=== PATIENT | male | born 1935 | race Caucasian/White ===

== ENCOUNTER 2024-12-09 05:07 | Emergency (ER) | payer MEDICARE, SELFPAY ==
[2024-12-09] VITALS (16 sets, daily range): BP systolic 108–155; BP diastolic 59–78; PULSE 47–60; RESP 12–24; TEMP 36.5; O2SAT 81–100; BMI 22.0
--- OUTSIDE RECORDS SUMMARY | 2024-12-09 05:09 | XMS_ITS | Clinical Summary ---
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 0 1 Active omega-3 fatty acids-vitamin E (FISH OIL) 1,000 mg cap Take by mouth. 0 2 Active calcium carbonate-vitami n D3, 600 mg-400 unit, 600 mg(1,500mg) -400 unit tabletIndication s:Pre-op exam Take 1 tablet by mouth once daily with a meal. 0 6 Active LATANOPROST OPHT 3 Active timoloL maleate (TIMOPTIC) 0.25 % ophthalmic solution 3 Active dorzolamide HCl/PF (dorzolamide, PF,) 2 % drop Place 1 Drop into the eye(s) two times daily. Right eye Active predniSONE (DELTASONE) 1 mg tabletIndication s:PMR (polymyalgia rheumatica) (HC) Take 1 Tablet (1 mg) by mouth once daily with a meal. 90 Tablet 4 Active omeprazole (PRILOSEC) 20 mg Delayed-Release capsuleIndicatio ns:Gastroesophag eal reflux disease with esophagitis without hemorrhage Take 1 Capsule (20 mg) by mouth once daily before a meal. 90 Capsule 4 4 Active levothyroxine (SYNTHROID) 100 mcg tabletIndication s:Hypothyroidism (acquired) Take 1 Tablet (100 mcg) by mouth before breakfast. 90 Tablet 4 4 Active tamsulosin (Flomax) 0.4 mg capsuleIndicatio ns:Benign prostatic hyperplasia with urinary frequency Take 2 Capsules (0.8 mg) by mouth once daily after a meal. 180 Capsule 3 4 Active Active Problems Problem Noted Date Diagnosed Date PMR (polymyalgia rheumatica) 07/16/2021 Overview (10/15/2022): Elevated CRP and ferritin, new onset diffuse muscle pain and most notably bilateral shoulder pain worse in the morning. Prednisone was started in July of 2021. Hypothyroidism (acquired) 02/24/2017 Gastroesophageal reflux disease with esophagitis 02/24/2015 Overview (02/24/2015): EGD 02/2015 reflux Unspecified tinnitus 12/12/2010 Loss of hearing 12/12/2010 Elevated prostate specific antigen (PSA) 011 Overview (12/06/2023): He was told by Estefania Zapata PAC at [facility] on 06/24/22 that he did not need to see Urology anymore and he does not need to check his PSA anymore. The following is from Estefania Zapata: #1 Elevated PSA It was my please to meet Mr. Smith in clinic today for elevated PSA. He is no family history of prostate cancer and also had a previous biopsy many years ago which was benign. We discussed that his PSA was around 811 years ago which is even more reassuring for there not being any significant prostate cancer present. We discussed that certainly given his age there may be some low-grade prostate cancer. Could consider a prostate MRI versus discontinuing altogether which I favored. Was in agreement with no longer checking and discontinuing prostate cancer screening but his was persistent with moving forward with imaging. Therefore an MRI has been ordered. We also get a sizing for consideration of an outlet procedure if necessary. All questions and concerns were answered to their satisfaction I will update them via the online portal with the results of the MRI when they are available. Hematuria, unspecified 12/11/2010 Benign prostatic hyperplasia with urinary freque ncy 12/11/2010 Resolved Problems Problem Noted Date Diagnosed Date Resolved Date Unspecified hypothyroidism 12/11/2010 0 02/24/2017 Immunizations Immunization Administration Dates Next Due AMB INFLUENZA IIV3 (AGE 65+ YRS) PF (Flu Clinic Only) 04/24/2019 COVID-19 VACCINE SPIKEVAX (M ODERNA 50MCG/0.5ML) 12YO+ PFS 12/06/2023 COVID-19 vaccine (Pfizer-Bio NTech 30mcg/0.3mL) 12YO+ BIVALENT PF, MDV 11/12/2022 COVID-19 vaccine (Pfizer-Bio NTech 30mcg/0.3mL) PF, MDV 12/03/2021,04/20/2021,09/13/2020,2020 HepA-HepB (Twinrix) 09/07/2001 Hepatitis B (Adult) 02/07/2002 Influenza, High-dose Inactivated 03/21/2018,03/05,04/06/2015 Influenza, High-dose Quadriv alent Inactivated 02/22/2020 Influenza, IIV3 (Age >=3 years) 04/02/20 14,04/19/2013,04/10/2012,2011,05/31/2011,04/03/2011 Influenza, IIV4 04/03/2014 Influenza, Inactivated AIIV4 (Age 65+ Years) Preserv Free 05/16/2023,03/24/2022,04/17/2021 Oral Polio Vaccine 09/07/2001 Pneumococcal Poly,23-Valent (Pneumovax) 04/29/2010 Pneumococcal conj 13-Valent (Prevnar 13) 01/23/2015 Polio Virus, Unspecified 09/07/2001 Td (Age >=7 Years) 08/07/1999 Tdap 02/23/2022,07/29/2011 Typhoid (injectable) 02/07/2002 Zoster (Shingrix-RZV, recombinant) 07/21/2018,,05/11/2018 Zoster (Zostavax-ZVL, live) 10/28/2011 Family History Medical History Relation Name Comments Cancer Brother of throat cancer at 80 Other Father d at 74 from [place] PD Heart Disease Mother possibly OR an d at 80 Psychiatric illness Mother schizoph santiago Psychiatric illness Sister 1 suicide Stroke Sister 2 of this at 78 Relation Name Status Comments Brother Father Mother Sister 1 Sister 2 Sister 3 Jasmin Alive Sister 4 Simona Alive Social History Tobacco Use Types Packs/Day Years Used Date Smoking Tobacco: Never Smokeless Tobacco: Never Tobacco Cessation:Counseling Given: Not Answered Alcohol Use Standard Drinks/Week Comments Yes 4 (1 standard drink = 0.6 oz pure alcohol) 1 per day with dinner; not daily PHQ-2 Answer Date Recorded PHQ-2 TOTAL SCORE 0 01/11/2024 Social Connections Answer Date Recorded Do you often feel lonely or isolated from those around you? 0 01/08/2024 Alcohol Use Answer Date Recorded How often do you have a drink containing alcohol ? 4 12/06/2023 How many drinks containing a lcohol do you have on a typical day when you are drinking? 0 12/06/2023 How often do you have five or more drinks on one occasion? 0 12/06/2023 Financial Resource Strain Answer Date R ecorded Difficulty of Paying Living Expenses 3 12/06/2023 Difficulty of Paying Living Expenses Not on file 12/06/2023 Food Insecurity Answer Date Recorded Do you worry your food will run out before you are able to buy more? 1 01/08/2024 Transportation Needs Answer Date Record ed Does lack of transportation keep you from medica l appointments? 1 01/08/2024 Does lack of transportation keep you from work, meetings or getting things that you need? 1 01/08/2024 Housing Stability Answer Date Recorded What is your housing situation today? 1 01/08/2024 Utilities Answer Date Recorded Do you have trouble paying f or utilities (for example, heat, electricity, water, phone)? 1 01/08/2024 Sex and Gender Information Value Date Recorded Sex Assigned at Not on file Legal Sex Male 8:09 AM RESIDENTIAL TECH Gender Identity Not on file Sexual Orientation Not on file Occupation Industry Job Start Date Job End Date retired Not on file Not on file Not on file Obstetrics History Last Filed Vital Signs Vital Sign Reading Time Taken Comments Blood Pressure 142/68 01/11/2024 11:49 AM CDT manual recheck Pulse 70 01/11/2024 12:26 PM CDT Temperature 36.6 C (97.8 F) 12/06/2023 10:38 AM CDT Respiratory Rate 16 06/22/2021 2:55 PM RESIDENTIAL TECH Oxygen Saturation 99% 01/11/2024 11: 47 AM CDT Inhaled Oxygen Concentration - - Weight 69.9 kg (154 lb 1.6 oz) 01/11/2024 11:47 AM CDT Height 171.7 cm (5' 7.6) 01/11/2024 11 :47 AM CDT Body Mass Index 23.71 01/11/2024 11:47 AM CDT Plan of Treatment Upcoming Encounters Date Type Department Care Team (Late st Contact Info) Description 01/11/2025 10:30 AM CDT Office Visit [facility] [address] [place] [address] Vikas Torre MD [address] [place] [address] Health Maintenance Due Date Last Done Comments Hepatitis B series for 19+ ( 3 of 3 - 19+ 3-dose series) 04/04/2002 02/07/2002, 09/07/2001 RSV vaccine for adults or (1 - 1-dose 75+ series) 2011 COVID-19 vaccine series ( season) 2024 12/06/2023, 11/12/2022, 03/30/2022, Additional history exists BMI (ht and wt on same day) for age 18+ 01/10/2025 01/11/2024, 12/06/2023, 11/12/2022, Additional history exists Depression screening for age 12+ 01/10/2025 01/11/2024, 12/06/2023, 11/12/2022, Additional history exists Medicare Wellness for age 65+ 01/11/2025, 11/12/2022, 11/09/2021, Additional history exists Influenza Vaccine (Season Ended) 2025 05/16/2023, 03/24/2022, 04/17/2021, Additional history exists Tetanus booster 02/24/2032 02/23/2022, 07/05, 08/07/1999 Pneumococcal series for age 50+ Completed 5, 04/29/2010 Zoster (shingles) series for age 50+ Completed 07/21/2018, 07/21/2018, 05/11/2018, Additional history exists Tdap Completed 02/23/2022, 07/29/2011 Insurance [facility] MR Advance Directives Documents on File Type Date Recorded Patient Theoretical Physicist Expl anation Healthcare Directive 06/14/2016 12:30 PM [facility], 05/20/2016 Care Teams Vegetable Farm Manager Relationship Specialty Start Date End Date Vikas Torre MD [facility] [place] [address] PCP - General Family Practice 07/16/22 [facility] Ophthalmology 12/06/23
--- NOTE | 2024-12-09 05:47 | ED.GENADULT ---
HPI - General Adult General Chief complaint: Anxiety Stated complaint: feeling stressed Time Seen by Provider: 12/09/24 05:24 Source: patient Mode of arrival: ambulatory Limitations: no limitations History of Present Illness HPI narrative: 89-year-old male brought his in because she was having chest pain and reports that while she was getting interviewed by myself, the treating physician, he started to feel anxious, cold, panicked and decided that he needed to be evaluated also. No chest pain, no shortness of breath, no fever. Of note, it really is quite cold in our emergency department overnight. He says that he feels chilled. He has had no symptoms of infection. No dysuria, no productive cough, no nausea and vomiting. Symptoms started about 15 minutes prior to my actual interview with the patient, while his was being assessed. He reports that he does feel like this is likely a panic attack and he has had these in the past as well. He denies a history of coronary artery disease, arrhythmia or heart failure. He does not take any cardiac medications nor does he have a history of even high blood pressure. No recent falls or trauma, no stroke-like or neurological changes. He does monitor his blood pressure on a regular basis because his has high blood pressure and this is his way of making sure the cuff is accurate. He reports that his blood pressure tends to run 120s over 60s and his pulse does tend to run 50s to 60s normally. No history of DVT or PE. Reports that his past medical history is fairly benign, he has a history of hypothyroidism and GERD. He is unable to list is medications for me but I do review what I can see in some limited outside records and CEA list. It does not look like he regularly uses a beta-ryan. Nonsmoker. Lives independently. Drives. ROS is notable for the anxiety symptoms as above, otherwise denies times 12 systems. Related Data Home Medications ?Medication ?Instructions ?Recorded ?Confirmed ascorbic acid (vitamin C) 1,000 mg 1 g PO QDAY 01/18/23 01/18/23 tablet (Vitamin C) calcium carb-ergocalciferol (vit tab PO 01/18/23 01/18/23 D2) 600 mg calcium-200 unit tablet latanoprost 0.005 % eye drops 1 drp ophthalmic (eye) QDAY 01/18/23 01/18/23 levothyroxine 100 mcg capsule 100 mcg PO QDAY 01/18/23 01/18/23 multivitamin (Multiple Vitamins 1 tab PO QAM 01/18/23 01/18/23 tablet) omega 3-eci-qev-fish oil 100 cap PO 01/18/23 01/18/23 mg-160 mg-1,000 mg capsule (Fish Oil) omeprazole 20 mg capsule,delayed 20 mg PO QDAY 01/18/23 01/18/23 release polyethylene glycol 3350 17 4 g PO QDAY 01/18/23 01/18/23 gram/dose oral powder (Miralax) tamsulosin 0.4 mg capsule (Flomax) 0.8 mg PO QDAY 01/18/23 01/18/23 timolol maleate 0.25 % eye drops 1 drp ophthalmic (eye) QDAY 01/18/23 01/18/23 Allergies Allergy/AdvReac Type Severity Reaction Status Date / Time penicillin V Allergy Severe severe Verified 01/18/23 14:11 rash and resp issues [facility] Medical History Enlarged prostate ?N40.0 - Benign prostatic hyperplasia without lower urinary tract symptoms (ICD-10) PMR (polymyalgia rheumatica) (~07/2021) ?M35.3 - Polymyalgia rheumatica (ICD-10) Surgical History History of right inguinal hernia repair (08/09/11) ?Z98.890 - Other specified postprocedural states (ICD-10) ?Z87.19 - Personal history of other diseases of the digestive system (ICD-10) History of phacoemulsification of cataract of left eye with intraocular lens implantation (03/31/16) ?Z98.42 - Cataract extraction status, left eye (ICD-10) ?Z96.1 - Presence of intraocular lens (ICD-10) History of phacoemulsification of cataract of right eye with intraocular lens implantation (04/14/16) ?Z98.41 - Cataract extraction status, right eye (ICD-10) ?Z96.1 - Presence of intraocular lens (ICD-10) Social History Narrative: -Shirley Smoking Status: Never smoker Do you use any of these nicotine containing products: None Second hand tobacco smoke exposure: No Exam Const: Vital Signs, click to edit/add: Vital Signs - 24 hr 12/09/24 05:09 12/09/24 05:16 12/09/24 05:17 Temperature 97.7 F Pulse Rate 48 L 60 Pulse Rate [Left P ulse Oximeter] 58 L Respiratory Rate 18 Blood Pressure 152/77 H Blood Pressure [Ri ght Upper Arm] 152/77 H Pulse Oximetry 99 100 100 Oxygen Delivery Me thod Room Air 12/09/24 05:21 12/09/24 05:26 12/09/24 05:40 Temperature Pulse Rate 57 L 53 L Pulse Rate [Left P ulse Oximeter] Respiratory Rate Blood Pressure 155/78 H Blood Pressure [Ri ght Upper Arm] Pulse Oximetry 100 100 Oxygen Delivery Me thod 12/09/24 05:42 12/09/24 06:00 12/09/24 06:01 Temperature Pulse Rate 54 L 59 L 55 L Pulse Rate [Left P ulse Oximeter] Respiratory Rate Blood Pressure 125/60 108/62 Blood Pressure [Ri ght Upper Arm] Pulse Oximetry 100 100 100 Oxygen Delivery Me thod 12/09/24 06:25 12/09/24 06:26 12/09/24 06:27 Temperature Pulse Rate 51 L 48 L 47 L Pulse Rate [Left P ulse Oximeter] Respiratory Rate 13 21 20 Blood Pressure 130/59 L Blood Pressure [Ri ght Upper Arm] Pulse Oximetry 100 99 97 Oxygen Delivery Me thod 12/09/24 06:40 12/09/24 06:42 12/09/24 07:00 Temperature Pulse Rate 52 L 53 L 58 L Pulse Rate [Left P ulse Oximeter] Respiratory Rate 24 12 19 Blood Pressure 132/61 Blood Pressure [Ri ght Upper Arm] Pulse Oximetry 93 81 L 98 Oxygen Delivery Me thod 12/09/24 07:02 Temperature Pulse Rate Pulse Rate [Left P ulse Oximeter] Respiratory Rate 14 Blood Pressure 151/68 H Blood Pressure [Ri ght Upper Arm] Pulse Oximetry Oxygen Delivery Me thod Documenting provider has reviewed patient's vital signs: yes Common normals: oriented x3 and alert Other: Anxious but redirectable. Tearful. Appears well nourished and well hydrated. HENMT: Common normals: normocephalic, moist oral mucous membranes and oropharynx normal Head and scalp: normocephalic Face and sinus: normal facial exam Mouth: oral and palatal mucosa normal Eye: Common normals: conjunctivae normal General eye: normal appearance of both eyes Conjunctiva: conjunctiva(e) normal Neck & C-Spine: Common normals: full ROM and no lymphadenopathy General: normal visual inspection Resp: Common normals: normal respiratory effort, no use of accessory muscles and clear to auscultation bilaterally Effort & inspection: able to speak in complete sentences Auscultation: clear to auscultation bilaterally Cardio: Common normals: regular rate, regular rhythm, S1 normal heart sound, S2 normal heart sound and no murmurs Rate: regular rate Rhythm: regular rhythm Heart sounds: S1 normal and S2 normal GI: Common normals: Normal to inspection, nondistended, normoactive bowel sounds present, soft to palpation, non-tender, no hepatosplenomegaly and no masses Palpation: soft and no hepatosplenomegaly Extremity: Common normals: normal to inspection, normal capillary refill and no pedal edema Neuro: Common normals: oriented x3, moves all extremities and gait normal Sensorium/orientation: alert Speech: speech normal Motor exam: strength 5/5 throughout Psych: Mood and affect: anxious Attention/concentration: attention grossly intact Insight: fair Judgement: fair Skin: Common normals: no rashes or lesions noted General skin exam: no rashes or lesions noted Course Course ED Course: 81-year-old male with episode of feeling cold and panic while his was being evaluated for chest pain. Patient feels like this is anxiety and he is likely correct. Due to his age, he he certainly could stressed him out to the point of causing coronary ischemia or this could be a sign of underlying infection, dehydration, electrolyte abnormality or other ill min. I have offered the patient a little bit of lorazepam to help calm him down but I did let him know that I would not let him drive he or his home if he took the medication. He would like to hold off from taking anything for now and rather just rest. Will run an EKG, basic cardiac labs and placed on monitor tech. Re-evaluated about 90 minutes once his 's workup is complete and see how he is feeling. Reevaluation(s) Time of Reevaluation #1: 07:00 Reevaluation #1: Counseled patient findings, he is feeling better in was sleeping at the time of my repeat interview. I have observed him up to the bathroom and he has ambulated around the ED. He says he feels like he may be too weak to go home but clearly he drove himself here just a couple of hours ago, is moving around the room, oxygen levels look good, labs have looked good here. He is feeling better just weak overall. I think for an 89-year-old the excitement of coming into the ED with his spouse who is clearly worried about and being awake overnight for these few hours has been exhausting. I do think it is safe to discharge him home and have discussed this as such. All testing was reviewed and written instructions are provided. Vital Signs Vital signs: Initial Vital Signs Respiratory Effort Normal, Spontaneous, Non-Labored 12/09/24 05:08 Respiratory Depth Normal 12/09/24 05:08 Vital Signs Temperature 97.7 F 12/09/24 05:09 Pulse Rate 58 L 12/09/24 05:09 Respiratory Rate 18 12/09/24 05:09 Blood Pressure 152/77 H 12/09/24 05:09 Pulse Oximetry 99 12/09/24 05:09 Oxygen Delivery Method Room Air 12/09/24 05:09 Temperature 97.7 F 12/09/24 05:09 Pulse Rate 58 L 12/09/24 07:00 Respiratory Rate 14 12/09/24 07:02 Blood Pressure 151/68 H 12/09/24 07:02 Pulse Oximetry 98 12/09/24 07:00 Oxygen Delivery Method Room Air 12/09/24 05:09 Medical Decision Making Lab Data Lab results reviewed: Yes I reviewed the patient's lab results Lab results narrative: Labs look good. Good creatinine for age, fair hemoglobin no signs of infection. Troponin normal, no elevation of inflammatory markers. Reassuring labs. Labs: Lab Results 12/09/24 12/09/24 12/09/24 Range/Units 05:30 05:37 06:20 WBC 5.37 (4.50-11.00) K/uL RBC 4.01 L (4.30-5.90) m/uL Hgb 12.6 L (13.5-17.5) gm/dL Hct 37.2 (37.0-53.0) % MCV 93 (80-100) fL MCH 31 (26-34) pg MCHC 34 (32-36) gm/dL RDW Coeff of Guerrero 12.8 (11.5-15.5) % Plt Count 206 (140-440) K/uL Neut % (Auto) 39.9 L (42.0-72.0) % Lymph % (Auto) 45.3 H (20-44) % [place] % (Auto) 9.3 (0.0-11.0) % Eos % (Auto) 4.3 (0.0-7.0) % Baso % (Auto) 0.6 (0.0-3.0) % Neut # (Auto) 2.10 (1.7-7.0) K/uL Lymph # (Auto) 2.40 (0.90-2.90) K/uL [place] # (Auto) 0.50 (0.00-0.90) K/UL Eos # (Auto) 0.23 (0.00-0.50) K/uL Baso # (Auto) 0.03 (0.00-0.30) K/uL Abs Immat Gran (auto) 0.03 (0.00-0.30) K/uL Imm/Tot Granulo (auto) 0.6 % Sodium 142 (135-149) mmol/L Potassium 3.8 (3.6-5.1) mmol/L Chloride 108 (96-114) mmol/L Carbon Dioxide 25 (20-32) mmol/L Anion Gap 9 (7-15) mEq/L BUN 21 (7-30) mg/dL Creatinine 1.2 (0.5-1.5) mg/dL Estimated Creat Clear 39.58 Estimated GFR 58 ml/min Glucose 86 (60-115) mg/dL Calcium 9.4 (8.4-10.6) mg/dL C-Reactive Protein < 0.5 L (0.5-1.0) mg/dL Urine Color Light yellow (Yellow) Urine Appearance Clear (Clear) Urine pH 8.5 (5.0-8.5) Ur Specific [place] 1.015 (1.000-1.030) Urine Protein Negative (Negative) Urine Glucose (UA) Negative (Negative) Urine Ketones Negative (Negative) Urine Blood Negative (Negative) Urine Nitrite Negative (Negative) Urine Bilirubin Negative (Negative) Urine Urobilinogen 0.2 (0.2-1.0) Ur Leukocyte Esterase Negative (Negative) POC Troponin I 0.01 (0.01-0.04) ng/ml ECG Data Attestation: I personally reviewed and interpreted this ECG as follows: Prior ECG tracings: not available for review Interpretation: Sinus bradycardia, rate of 51. Intervals and axis do appear normal. There is slight flattening of the T-waves in the lateral leads but otherwise normal EKG. No prior comparison. Discharge Plan Discharge Clinical Impression: Stress reaction Patient Disposition: Home w/ Parent or Adult Condition: Improved Instructions: Stress (ED) Additional Instructions: As we discussed, there are no signs of abnormalities found today. Your heart rate does tend to run a little bit low, but this does appear to be normal for you and I do not think it is the cause of your symptoms. I am glad that you are feeling somewhat better. I do think that this episode was triggered by stress. There are no signs of heart attack, abnormal heart rhythm, anemia, dehydration, infection, electrolyte abnormality or other similar acute illness. For someone your age, just being up overnight is going to take a lot out of you for today. I would expect you to be quite fatigued. You also might be coming down with a mild viral illness but as stated, there are no signs of severe illness. Drink lots of fluids, take your medications as prescribed, get lots of rest today. If you continue to have symptoms, follow up with your primary care doctor to discuss further testing that cannot be done in the emergency department. Activity Level: Activity as Tolerated Discharge Diet: Regular Prescriptions: No Action calcium carbonate-vitamin D2 600 mg calcium- 200 unit tablet PO Fish Oil 100-160-1,000 mg capsule PO tamsulosin [Flomax] 0.4 mg capsule 0.8 mg PO QDAY ascorbic acid (vitamin C) [Vitamin C] 1,000 mg tablet 1 g PO QDAY latanoprost 0.005 % drops 1 drp ophthalmic (eye) QDAY levothyroxine 100 mcg capsule 100 mcg PO QDAY polyethylene glycol 3350 [Miralax] 17 gram/dose powder 4 g PO QDAY multivitamin [Multiple Vitamins] Tablet 1 tab PO QAM omeprazole 20 mg capsule,delayed release(DR/EC) 20 mg PO QDAY timolol maleate 0.25 % drops 1 drp ophthalmic (eye) QDAY Follow Up/Referrals: Provider,Not a Local [Primary Care Provider, Family Practice] Stand Alone Forms: Viewsy Info Instructions
[2024-12-09 05:51] LABS: Hematocrit 37.2 % (37.0-53.0); Hemoglobin* 12.6 gm/dL (13.5-17.5); Lymphocytes Percent Auto 45.3 % (20-44); Mean Corpuscular HGB Conc 34 gm/dL (32-36); Mean Corpuscular Hemoglobin 31 pg (26-34); Mean Corpuscular Volume 93 fL (80-100); Neutrophils Percent Auto 39.9 % (42.0-72.0); Platelet Count* 206 K/uL (140-440); RDW Coefficient of Variation % 12.8 % (11.5-15.5); Red Blood Count 4.01 m/uL (4.30-5.90); White Blood Count* 5.37 K/uL (4.50-11.00)
[2024-12-09 05:52] LABS: Basophils Absolute Auto 0.03 K/uL (0.00-0.30); Basophils Percent Auto 0.6 % (0.0-3.0); Eosinophils Absolute Auto 0.23 K/uL (0.00-0.50); Eosinophils Percent Auto 4.3 % (0.0-7.0); Immature Granulocytes Abs Auto 0.03 K/uL (0.00-0.30); Immature Granulocytes Pct Auto 0.6 %; Monocytes Percent Auto 9.3 % (0.0-11.0)
[2024-12-09 05:52] LABS: Troponin, Point-of-Care* 0.01 ng/ml (0.01-0.04)
[2024-12-09 05:56] LABS: Slide Review Reflex No
[2024-12-09 06:00] LABS: Chloride* 108 mmol/L (96-114); Potassium* 3.8 mmol/L (3.6-5.1); Sodium* 142 mmol/L (135-149)
[2024-12-09 06:04] LABS: Anion Gap 9 mEq/L (7-15); Blood Urea Nitrogen* 21 mg/dL (7-30); Calcium* 9.4 mg/dL (8.4-10.6); Carbon Dioxide* 25 mmol/L (20-32); Creatinine* 1.2 mg/dL (0.5-1.5); Est. Creatinine Clearance* 39.58; Estimated Glomerular Filt Rate 58 ml/min; Glucose* 86 mg/dL (60-115)
[2024-12-09 06:11] LABS: C Reactive Protein* < 0.5 mg/dL (0.5-1.0)
[2024-12-09 07:03] LABS: Appearance Urine Clear (Clear); Bilirubin Urine Negative (Negative); Blood Urine Negative (Negative); Color Urine Light yellow (Yellow); Glucose Urine Negative (Negative); Ketones Urine Negative (Negative); Leukocyte Esterase Urine Negative (Negative); Nitrite Urine Negative (Negative); Protein Urine Negative (Negative); Specific Gravity Urine 1.015 (1.000-1.030); Urobilinogen Urine 0.2 (0.2-1.0); pH Urine 8.5 (5.0-8.5)
== END 2024-12-09 07:15 | disposition home or self-care (01) ==
PROVIDERS: Emergency Provider Family Medicine
DX: F43.0 Acute stress reaction (principal)
CPT/HCPCS: 36415; 80048; 81003; 84484; 85025; 86140; 93005; 99284